=== PATIENT | female | born 1970 | race Caucasian/White ===

== ENCOUNTER 2017-03-22 11:39 | Emergency (ER) | payer BC ==
[~2017-03-22] VITALS: Ht 167.6 cm; Wt 98.4 kg
[~2017-03-22 11:39] MED LIST: ALPR1TAB6 PO; CYCL-331 PO; DESV50TA PO; EZET1TAB30 PO; HYDR25TA9 PO; LANS30CA66 PO; LEVO50TA5 PO; NAPR500T3 PO; OXYC-323 PO
[2017-03-22] MEDS ORDERED: IV NORMAL SALINE 1,000ML 1,000 ML IV SCH (11:50)
[2017-03-22] MEDS ORDERED: 0.9 % SODIUM CHLORIDE 10 ML DISP.SYRIN. IV PRN (12:00)
--- NOTE | 2017-03-22 12:03 | PHYS DOC ---
Past History Past Medical History: Anxiety, High Cholesterol, Hypertension, Hypothyroid, Other Past Surgical History: Other Alcohol Use: None Drug Use: None Adult General Chief Complaint Chief Complaint: FACE PAIN [facility] HPI This patient is a pleasant 46 female with a history of hypertension, hyperlipidemia, hypothyroidism who presents with paresthesias for the last 3 days. Patient had noted on the right side of her face paresthesias without weakness or last 3 days as been relatively constant. She's had episodes of vision changes she describes as blurred vision without the eye pain, facial rash or recent URI symptoms. The blurred vision last moments and then resolve. She is also noted decreased sensation in the right foot as well unrelated to the face. She's never had an episode like this before in the past and is worried that she is even having a stroke or possibly a cardiac issue. At this point patient denies any recent fevers, chills, trauma, headache, or other symptoms or complaints. She denies recent change in medications she denies any recent travel outside the country. She does not smoke she does not use illegal drugs does not drink. Patient admits she is significant family history for cardiac disease for her father at age 55 of a massive heart attack. She is mildly anxious. Review of Systems Review of Systems Constitutional: Denies fever or chills [] Eyes: Denies-drainage, redness, or eye pain [] HENT: Denies nasal congestion or sore throat [] Respiratory: Denies cough or shortness of breath [] Cardiovascular: No additional information not addressed in HPI [] GI: Denies abdominal pain, nausea, vomiting, bloody stools or diarrhea [] : Denies dysuria or hematuria [] Musculoskeletal: Denies back pain or joint pain [] Integument: Denies rash or skin lesions [] Neurologic: Denies headache, focal weakness] lingual and sensory changes Endocrine: Denies polyuria or polydipsia [] Allergies Allergies Allergies Coded Allergies Type Severity Reaction Last Updated Verified No Known Drug Allergies 03/02/15 No Physical Exam Physical Exam Constitutional: Well developed, well nourished, no acute distress, non-toxic appearance. [] HENT: Normocephalic, atraumatic, bilateral external ears normal, oropharynx moist, no oral exudates, nose normal. [] Eyes: PERRLA, EOMI, conjunctiva normal, no discharge. [] Neck: Normal range of motion, no tenderness, supple, no stridor. [] Cardiovascular:Heart rate regular rhythm, no murmur [] Lungs & Thorax: Bilateral breath sounds clear to auscultation [] Abdomen: Bowel sounds normal, soft, no tenderness, no masses, no pulsatile masses. [] Skin: Warm, dry, no erythema, no rash. [] Back: No tenderness, no CVA tenderness. [] Extremities: No tenderness, no cyanosis, no clubbing, ROM intact, no edema. [] Neurologic: Alert and oriented X 3, normal motor function, no focal deficits noted. NIH stroke scale is 1 her paresthesias of the face, no ataxia no dysmetria no abnormal proprioception. Patient has normal strength in all extremity is +5 out of 5. Patient has +2 capillary refill +2 peripheral pulses. Patient has normal word finding speech without dysarthria Psychologic: Affect normal, judgement normal, mood normal. [] Current Patient Data Lab Results Nursery Laboratory Tests 03/22/17 12:16: Glucose (Fingerstick) 94 03/22/17 12:20: White Blood Count 6.6, Red Blood Count 4.61, Hemoglobin 14.1, Hematocrit 40.6, Mean Corpuscular Volume 88, Mean Corpuscular Hemoglobin 31, Mean Corpuscular Hemoglobin Concent 35, Red Cell Distribution Width 12.9, Platelet Count 259, Neutrophils (%) (Auto) 58, Lymphocytes (%) (Auto) 30, Monocytes (%) (Auto) 9, Eosinophils (%) (Auto) 2, Basophils (%) (Auto) 1, Neutrophils # (Auto) 3.8, Lymphocytes # (Auto) 2.0, Monocytes # (Auto) 0.6, Eosinophils # (Auto) 0.1, Basophils # (Auto) 0.0, Erythrocyte Sedimentation Rate 13, Sodium Level 141, Potassium Level 3.2, Chloride Level 105, Carbon Dioxide Level 28, Anion Gap 8, Blood Urea Nitrogen 11, Creatinine 0.7, Estimated GFR (Cockcroft-Gault) 90.1, BUN/Creatinine Ratio 16, Glucose Level 96, Calcium Level 8.6, Total Bilirubin 0.4, Aspartate Amino Transf (AST/SGOT) 20, Alanine Aminotransferase (ALT/SGPT) 29, Alkaline Phosphatase 77, Troponin I Quantitative < 0.017, Total Protein 7.6 , Albumin 3.8, Albumin/Globulin Ratio 1.0 03/22/17 12:25: Urine Collection Type Unknown, Urine Color Yellow, Urine Clarity Clear, Urine pH 6.5, Urine Specific [place] 1.010, Urine Protein Neg, Urine Glucose (UA) Neg , Urine Ketones (Stick) Trace, Urine Blood Large, Urine Nitrite Neg, Urine Bilirubin Neg, Urine Urobilinogen Dipstick 0.2, Urine Leukocyte Esterase Trace, Urine RBC 6-10, Urine WBC 1-4, Urine Squamous Epithelial Cells Many, Urine Bacteria Mod, Urine Opiates Screen Neg, Urine Methadone Screen Neg, Urine Barbiturates Neg, Urine Phencyclidine Screen Neg, Urine Amphetamine/ Methamphetamine Neg, Urine Benzodiazepines Screen Neg, Urine Cocaine Screen Neg , Urine Cannabinoids Screen Neg, Urine Ethyl Alcohol Neg EKG EKG EKG timed 12:12 PM 8 03/22/[address] Fernández heart rate 71 normal sinus rhythm there is a normal CA interval 154 QT of 436 normal QRS width of [address] segment or T-wave changes consistent with acute ischemia. [] Radiology/Procedures Radiology/Procedures [] IMAGING REPORT Signed PATIENT: GRAYSON WARE ACCOUNT: [id number] : 1970 LOCATION: ER AGE: 46 SEX: F EXAM STATUS: PRE ER ORD. PHYSICIAN: JERRELL FERNÁNDEZ MD REASON: paresthesias of face extremity PROCEDURE: CT HEAD WO CONTRAST Exam performed: CT scan of the head without contrast. Date of Service: 03/22/17. Comparison: None available. Clinical History: Facial tingling all over for 3 days. Tingling left foot today. Technique: Helical acquisitions are obtained from the foramen magnum to the vertex without intravenous administration of contrast. Findings: The ventricles are midline without evidence of dilatation. Normal bowen-white differentiation is maintained. There is no extra axial fluid collection, intraparenchymal hemorrhage or mass lesion. The visualized portions of the orbits, paranasal sinuses and the mastoid air cells appear clear. The calvarium is intact. Impression: 1. No acute intracranial process detected. PQRS Compliance Statement: One or more of the following individualized dose reduction techniques were utilized for this examination: 1. Automated exposure control 2. Adjustment of the mA and/or kV according to patient size 3. Use of iterative reconstruction technique DICTATED AND SIGNED BY: WALE CORTEZ MD DATE: 03/22/17 1208 CC: JERRELL FERNÁNDEZ MD; SHARIF KAUFMAN ~ Signed PATIENT: GRAYSON WARE ACCOUNT: [id number] : 1970 LOCATION: ER AGE: 46 SEX: F EXAM STATUS: PRE ER ORD. PHYSICIAN: JERRELL FERNÁNDEZ MD REASON: paresthesias PROCEDURE: CHEST PA & LATERAL Exam performed: 2 views of the chest. Indication: paresthesias Date of Service:03/22/2017 1:50 PM . Comparison : None available Findings: PA and lateral radiographs of the chest reveal a normal cardiomediastinal contour. The lungs are clear. No pleural fluid is seen. The visualized osseous structures are unremarkable. Impression: Radiographically normal chest. DICTATED AND SIGNED BY: WALE CORTEZ MD DATE: 03/22/17 1209 CC: JERRELL FERNÁNDEZ MD; SHARIF KAUFMAN ~ Course & Med Decision Making Course & Med Decision Making Pertinent Labs and Imaging studies reviewed. (See chart for details) [Patient presents with paresthesias of the upper face lower face and extremities. She is also complained of visual changes intermittently for last [address] scan chest x-ray and workup here in the emergency department without significant finding a result. There is no evidence of stroke or mass or bleed on head CT. CT report was the only thing available and reviewed by me. Chest x-ray report was reviewed by me EKG is unremarkable. Patient's only finding was mild hypokalemia with potassium of 3.2 which will not be likely causing her symptoms. Differential diagnosis includes issues like Guillain-Swift , multiple sclerosis, ALS, electrolyte abnormalities, abdomen delays secondary to medication such as Adderall causing paresthesias, stroke, mass tumor or intracranial bleed. At this time discussed case with Dr. SA Waters neurologist pollution control chemist for [facility] who agrees with differential diagnosis and need for MRI without contrast and possible LP for continued evaluation of paresthesias. Called internal medicine doctor SEBASTIEN at 2:10 PM who accepted patient to his service. Patient is asked that we release her via her own POV being taken by her mother for an outpatient admission to the admissions process at [facility]. We discussed risks and benefits of such disposition.] Impression: Paresthesias of unclear etiology, hypokalemia Disposition: Transferred [facility] for continued workup and evaluation by neurology and internal medicine for paresthesia Dragon Disclaimer Dragon Disclaimer This chart was dictated in whole or in part using Voice Recognition software in a busy, high-work load, and often noisy Emergency Department environment. It may contain unintended and wholly unrecognized errors or omissions. Departure Departure: Impression: Primary Impression: Hypokalemia Additional Impression: Paresthesia Referrals: SHARIF KAUFMAN (PCP) Problem Qualifiers JERRELL FERNÁNDEZ MD March 22, 2017 12:02
--- NOTE | 2017-03-22 12:11 | RAD ---
Exam performed: CT scan of the head without contrast. Date of Service: 03/22/17. Comparison: None available. Clinical History: Facial tingling all over for 3 days. Tingling left foot today. Technique: Helical acquisitions are obtained from the foramen magnum to the vertex without intravenous administration of contrast. Findings: The ventricles are midline without evidence of dilatation. Normal bowen-white differentiation is maintained. There is no extra axial fluid collection, intraparenchymal hemorrhage or mass lesion. The visualized portions of the orbits, paranasal sinuses and the mastoid air cells appear clear. The calvarium is intact. Impression: 1. No acute intracranial process detected. PQRS Compliance Statement: One or more of the following individualized dose reduction techniques were utilized for this examination: 1. Automated exposure control 2. Adjustment of the mA and/or kV according to patient size 3. Use of iterative reconstruction technique
--- NOTE | 2017-03-22 12:12 | RAD ---
Exam performed: 2 views of the chest. Indication: paresthesias Date of Service:03/22/2017 1:50 PM . Comparison : None available Findings: PA and lateral radiographs of the chest reveal a normal cardiomediastinal contour. The lungs are clear. No pleural fluid is seen. The visualized osseous structures are unremarkable. Impression: Radiographically normal chest.
[2017-03-22 12:30] LABS: BASO % 1 % (0-3); EOS # 0.1 x10^3/uL (0.0-0.7); EOS % 2 % (0-3); HEMATOCRIT 40.6 % (36.0-47.0); HEMOGLOBIN 14.1 g/dL (12.0-15.5); LYMPH % 30 % (24-48); MEAN CORPUSCULAR HEMOGLOBIN 31 pg (25-35); MEAN CORPUSCULAR HGB CONC 35 g/dL (31-37); MEAN CORPUSCULAR VOLUME 88 fL (79-100); MONO # 0.6 x10^3/uL (0.0-1.1); MONO % 9 % (0-9); NEUT # 3.8 x10^3uL (1.8-7.7); NEUT % 58 % (31-73); PLATELET COUNT 259 x10^3/uL (140-400); RED BLOOD COUNT 4.61 x10^6/uL (3.50-5.40); RED CELL DISTRIBUTION WIDTH 12.9 % (11.5-14.5); WHITE BLOOD COUNT 6.6 x10^3/uL (4.0-11.0)
[2017-03-22 12:48] LABS: BILIRUBIN,URINE NEG (NEG); CLARITY,URINE CLEAR; COLOR,URINE YELLOW; GLUCOSE,URINE NEG (NEG); NITRITE,URINE NEG (NEG); UROBILINOGEN,URINE 0.2 mg/dL (0.2 mg/dL)
[2017-03-22 12:49] LABS: BACTERIA,URINE MOD /HPF (0-FEW); SQUAMOUS EPITHELIAL CELL,UR MANY /LPF
[2017-03-22 12:52] LABS: AMPHETAMINE/METHAMPHETAMINE NEG (NEG); BARBITURATES NEG (NEG); BENZODIAZEPINES NEG (NEG); CANNABINOIDS NEG (NEG); COCAINE NEG (NEG); METHADONE NEG (NEG); OPIATES NEG (NEG); PHENCYCLIDINE NEG (NEG)
[2017-03-22 12:53] LABS: ALBUMIN 3.8 g/dL (3.4-5.0); CALCIUM 8.6 mg/dL (8.5-10.1); CREATININE 0.7 mg/dL (0.6-1.0); GFR 90.1; POTASSIUM 3.2 mmol/L (3.5-5.1); TOTAL BILIRUBIN 0.4 mg/dL (0.2-1.0); TOTAL PROTEIN 7.6 g/dL (6.4-8.2)
--- NOTE | 2017-03-22 13:05 | EKG ---
[address] [address] Test Date: 2017-03-22 Test Time: 12:12:39 Pat Name: GRAYSON WARE Department: Room: Gender: F [place]: SHAHEED : 1970 Requested By: JERRELL FERNÁNDEZ Order Number: [id number] Reading MD: Abdias Leon Measurements Intervals [place] Rate: 71 P: 37 [place]: 154 QRS: 3 QRSD: 88 T: 29 QT: 436 QTc: 479 Interpretive Statements SINUS RHYTHM PROLONGED QT Electronically Signed On 03-26-2017 9:30:56 CDT by Abdias Leon
[2017-03-22 13:33] LABS: SEDIMENTATION RATE 13 (0-25)
[2017-03-22 14:50] LABS: THYROID STIM HORMONE (TSH) 2.429 uIU/mL (0.358-3.740)
[2017-03-22 15:56] VITALS: BP 172/101
[2017-03-22] MEDS ORDERED: POTASSIUM CHLORIDE 20 MEQ TABLET.ER. PO ONE (16:20)
== END 2017-03-22 16:09 ==
LOC: ER 11:39
DX: E87.6 Hypokalemia (principal); R20.2 Paresthesia of skin; E03.9 Hypothyroidism, unspecified; E78.00 Pure hypercholesterolemia, unspecified; I10 Essential (primary) hypertension; F41.9 Anxiety disorder, unspecified
CPT/HCPCS: 36415; 70450; 71020; 80053; 80305; 81001; 81025; 82947; 84439; 84443; 84484; 84703; 85027; 85651; 93005; 96360; 96361; G0481; 99285-25; J7030

== ENCOUNTER → 2021-03-02 | Outpatient (CLI) | payer BC ==
[~2021-03-02] MED LIST changes: +HYDR-2145 PO; -HYDR25TA9 PO; +NAPR-514 PO; -NAPR500T3 PO; -OXYC-323 PO; +OXYC1TAB15 PO
--- NOTE | 2021-03-02 11:34 | RAD ---
EXAM: Chest, 2 views. HISTORY: Chest pain. COMPARISON: 03/22/2017 FINDINGS: 2 views of the chest are obtained. There is bilateral multifocal interstitial infiltrate. T here is no pleural effusion or pneumothorax. The heart is normal in size. IMPRESSION: Bilateral multifocal interstitial infiltrate. Electronically signed by: Zulma Pérez MD (03/02/2021 11:32 AM) [id number]
== END ==
LOC: RAD 10:57
PROVIDERS: ATTEND Physician Assistant Medical
DX: J84.89 Other specified interstitial pulmonary diseases (principal); R09.89 Other specified symptoms and signs involving the circulatory and respiratory systems
CPT/HCPCS: 71046

== ENCOUNTER → 2021-09-16 | Outpatient (CLI) | payer BC ==
[~2021-09-16] MED LIST changes: -CYCL-331 PO; +CYCL10TA19 PO
--- NOTE | 2021-09-16 15:38 | RAD ---
Axial noncontrast CT imaging of the abdomen pelvis was obtained. Coronal and sagittal reformats are a vailable. INDICATION: Abdominal mass. FINDINGS: The lung bases are clear. The heart is unenlarged. There is a focal hypodensity in segment 8 of the l iver on axial series 2 image 20 measuring approximate 1 cm. In the left lobe of the liver or adjacent to the left lobe of the liver between liver parenchyma the stomach is a 4.2 cm hypodense poorly defi magalis mass. Spleen, gallbladder, adrenals, kidneys and pancreas are unremarkable in appearance. The stomach, small and large bowel are nondistended. No evidence pathologic wall thickening. There is sigmoid diverticulosis without diverticulitis. Within the pelvis there is a complex cystic lesion me asuring approximate 5.6 x 4.2 cm. There are massive fibroids or other heterogeneous masses in the [place] the right-sided mass measures 12 cm the left-sided mass measures 10 cm. There are multiple poorly defined cystic lesions in the region of cervix. Bony structures are unremarkable in appearance. IMPRESSION: 1. Findings within the uterus and cervix are concerning for gynecologic malignancy. Additionally ther e is a complex is also concerning for possible ovarian neoplasm. Hypodensities in the liver concernin g for metastatic disease. Evaluation of the structures is limited without intravenous contrast. These findings may be further evaluated with pelvic MRI as well as MRI of the liver. Exposure: One or more of the following individualized dose reduction techniques were utilized for thi s examination: 1. Automated exposure control 2. Adjustment of the mA and/or kV according to patient size 3. Use of iterative reconstruction technique Electronically signed by: Sacha Kim MD (09/16/2021 3:35 PM) [facility]
== END ==
LOC: CT 14:57
PROVIDERS: ATTEND Physician Assistant Medical
DX: R19.00 Intra-abdominal and pelvic swelling, mass and lump, unspecified site (principal); K57.30 Diverticulosis of large intestine without perforation or abscess without bleeding
CPT/HCPCS: 74176